=== PATIENT | male | born 1975 | race Caucasian/White ===

== ENCOUNTER 2019-08-25 22:35 | Emergency (ER) | payer MEDICARE ==
[2019-08-25 22:45] VITALS: BP 120/80
--- NOTE | 2019-08-25 22:55 | ED Physician Documentation ---
Nausea/Vomiting/Diarrhea - HISTORIAN Historian: patient - HPI Stated Complaint: N/V/D since 1829 today Chief Complaint: Nausea,Vomiting,Diarrhea Additional Information: Patient presents to ED via EMS with nausea/vomiting and diarrhea since 1829 tonight. Patient reports he ate some [place] food that did not agree with him. He has had 2 episodes of vomiting and 1 episode of diarrhea since onset 4 hours ago. He denies fever, chills, or abdominal pain. Onset: hours (4) Duration: waxing, waning Timing: sudden onset Context: bad food. denies: out of country travel Severity: mild - Associated Symptoms Vomiting: mild Diarrhea: watery Abdominal Pain: none - ROS CONST: none CVS/RESP: denies: chest pain, shortness of breath GI/: denies: black stools, bloody stools EYES/ENT: none MS/SKIN/LYMPH: denies: ankle swelling NEURO/PSYCH: denies: headache - PAST HX Past History: diabetes Type 2 Other History: hypertension Allergies/Adverse Reactions: Allergies Allergy/AdvReac Type Severity Reaction Status Date / Time acetaminophen Allergy Verified 08/25/19 22:43 [From Darvocet-N] niacin Allergy Verified 08/25/19 22:43 propoxyphene Allergy Verified 08/25/19 22:43 [From Darvocet-N] - SOCIAL HX Smoking History: cigarettes Alcohol Use: none Drug Use: none - FAMILY HX Family History: none - VITAL SIGNS Vital Signs: Vital Signs Temp Pulse Resp BP Pulse Ox 98.8 F 89 18 120/80 96 08/25/19 22:35 08/25/19 22:35 08/25/19 22:35 08/25/19 22:35 08/25/19 22:35 - REVIEWED ASSESSMENTS Nursing Assessment Reviewed: Yes Vitals Reviewed: Yes Progress - Progress Progress: 2315 Patient sleeping in room, snoring. ED Results Lab/Radiology - Orders Orders: ED Orders Category Date Time Status Ondansetron HCl Rapdis [Zofran Odt] Med 08/25/19 23:24 Once 16 mg PO NOW ONE Ondansetron HCl Rapdis [Zofran Odt] Med 08/25/19 23:14 Discontinued 4 mg PO NOW ONE Nausea Physical Exam - EXAM General Appearance: no acute distress, alert EENT: FAUZIA Neck: supple Respiratory: no resp distress, chest non-tender, breath sounds normal CVS: reg rate & rhythm, heart sounds normal Abdomen: non-tender. No: tenderness Back: painless ROM Skin: warm/dry, normal color Extremities: non-tender, no edema Neuro/Psych: oriented X3, mood/affect nml Discharge Clincal Impression: Gastroenteritis Referrals: Primary Doctor,No [Primary Care Provider] - 2 Days Additional Instructions: 1. Zofran every 8 hours as needed for nausea/vomiting 2. Imodium (OTC) as needed for diarrhea 3. Drink plenty of fluids to maintain proper hydration. Avoid caffeine and alcohol 4. Follow up with PCP within 1 week 5. Return to ER for new or worsening symptoms. Condition: Stable Disposition: 01 HOME, SELF-CARE Decision to Admit: NO Date of Decison to Admit: 08/25/19 Decision Time: 23:24
[2019-08-25] MEDS ORDERED: ONDANSETRON HCL 4 MG TAB.RAPDIS PO ONE ×2 (23:14→23:24)
== END 2019-08-25 23:30 | disposition home or self-care (01) ==
LOC: ED 22:35
DX: K52.9 Noninfective gastroenteritis and colitis, unspecified (principal)
CPT/HCPCS: 99282; 99283; A9270